=== PATIENT | female | born 1985 ===

== ENCOUNTER 2018-03-07 17:39 | Emergency (ER) | payer MEDICAID ==
[2018-03-07 18:09] VITALS: BMI 22.3
[2018-03-07] MEDS ORDERED: Sodium Chloride 0.9% 1,000 ML IV STA (18:50)
[2018-03-07 19:09] LABS: BASO # 0.05 K/mm3 (0.0-2.0); BASO % 0.9 % (0.0-3.0); EOS # 0.2 (0.0-0.7); EOS % 4.3 % (1.5-5.0); GRAN # 3.61 (1.4-6.5); GRAN % 64.6 % (50.0-68.0); HEMOGLOBIN 13.5 g/dL (12.0-16.0); LYMPH # 1.2 (1.2-3.4); MEAN CELL VOLUME 93.5 fl (80.0-105.0); MEAN CORPUSCULAR HEMOGLOBIN 31.5 pg (25.0-35.0); MEAN CORPUSCULAR HGB CONC 33.8 g/dl (31.0-37.0); MEAN PLATELET VOLUME 10.5 fl (7.0-11.0); MONO # 0.5 (0.1-0.6); MONO % 8.2 % (1.0-6.0); RBC 4.28 10^6/uL (3.5-6.1); RED CELL DISTRIBUTION WIDTH 11.8 % (11.5-14.5); WHITE BLOOD COUNT 5.6 10^3/uL (4.5-11.0)
[2018-03-07 19:11] LABS: URINE APPEARANCE CLEAR (CLEAR); URINE BILIRUBIN NEGATIVE (NEGATIVE); URINE BLOOD NEGATIVE (NEGATIVE); URINE COLOR YELLOW (YELLOW); URINE GLUCOSE (UA) NEGATIVE (NEGATIVE); URINE LEUKOCYTE ESTERASE NEGATIVE Leu/uL (NEGATIVE); URINE PROTEIN NEGATIVE mg/dL (<30 mg/dL); URINE UROBILINOGEN 0.2 E.U./dL (<1 E.U./dL)
[2018-03-07 19:31] LABS: ALB/GLOB RATIO 1.4 (1.1-1.8); ALBUMIN 4.6 g/dL (3.0-4.8); ALT/SGPT 25 U/L (7-56); AST/SGOT 23 U/L (14-36); BLOOD UREA NITROGEN 17 mg/dL (7-21); CALCIUM 9.2 mg/dL (8.4-10.5); GFR NON-AFRICAN AMERICAN > 60
[2018-03-07 20:47] VITALS: RESP 17; O2SAT 98
--- NOTE | 2018-03-07 21:27 | ED PDOC ---
Arrival/HPI - General Chief Complaint: Weakness/Neurological Deficit Time Seen by Provider: 03/07/18 18:15 Historian: Patient - History of Present Illness Narrative History of Present Illness (Text): 32 year old female with PMH of asthma presents to the emergency department complaining of intermittent left arm paresthesias x 8 months. Had one short episode of right-sided lower lip and neck muscle twitching this afternoon which prompted visit to emergency department. Also mentions intermittent chest tightness and SOB last month, typical of her asthma, that resolved with albuterol inhaler use. No current physical complaints, would just like to be "checked out". Requesting to establish followup with clinic. Denies fever, ch ills, headache, dizziness, vision changes, palpitations, diaphoresis, abdominal pain, N/V, weakness, numbness, facial droop, facial numbness/paresthesias, difficulty speaking, changes in gait/balance, urinary symptoms, or any other associated symptoms. Past Medical History - Provider Review Nursing Documentation Reviewed: Yes - Infectious Disease Hx of Infectious Diseases: None - Cardiac Hx Cardiac Disorders: No - Pulmonary Hx Respiratory Disorders: Yes Hx Asthma: Yes - Neurological Hx Neurological Disorder: No - HEENT Hx HEENT Disorder: No - Renal Hx Renal Disorder: No - Endocrine/Metabolic Hx Endocrine Disorders: No - Hematological/Oncological Hx Blood Disorders: No - Integumentary Hx Dermatological Disorder: No - Musculoskeletal/Rheumatological Hx Musculoskeletal Disorders: No - Gastrointestinal Hx Gastrointestinal Disorders: No - Genitourinary/Gynecological Hx Genitourinary Disorders: No - Psychiatric Hx Psychophysiologic Disorder: No Hx Substance Use: No Family/Social History - Physician Review Nursing Documentation Reviewed: Yes Family/Social History: No Known Family HX Smoking Status: Never Smoked Hx Alcohol Use: Yes Frequency of alcohol use: Socially Hx Substance Use: No Allergies/Home Meds Allergies/Adverse Reactions: Allergies No Known Allergies Allergy (Verified 03/08/18 09:15) Home Medications: Home Meds Medication Instructions Recorded Confirmed Albuterol HFA [Ventolin HFA 90 0.09 mg IH Q12 12/25/16 03/31/17 mcg/actuation (8 g)] Review of Systems - Physician Review All systems were reviewed & negative as marked: Yes - Review of Systems Constitutional: Normal. absent: Fatigue, Fevers Eyes: Normal. absent: Vision Changes, Photophobia ENT: Normal. absent: Sore Throat, Sinus Congestion Respiratory: Normal. absent: SOB, Cough Cardiovascular: Normal. absent: Chest Pain, Palpitations, Calf Pain, Syncope Gastrointestinal: Normal. absent: Abdominal Pain, Diarrhea, Nausea, Vomiting Genitourinary Female: Normal. absent: Dysuria, Frequency Musculoskeletal: Normal. absent: Arthralgias, Back Pain, Neck Pain Skin: Normal. absent: Rash Neurological: Other (paresthesias, twitching). absent: Headache, Dizziness, Focal Weakness, Gait Changes, Speech Changes, Facial Droop, Disequilibrium Endocrine: Normal Hemo/Lymphatic: Normal Psychiatric: Normal Physical Exam Vital Signs Reviewed: Yes Vital Signs Temp Pulse Resp BP Pulse Ox 03/07/18 20:46 70 17 115/60 98 03/07/18 18:09 98.6 F 67 18 118/80 97 Temperature: Afebrile Blood Pressure: Normal Pulse: Regular Respiratory Rate: Normal Appearance: Positive for: Well-Appearing, Non-Toxic, Comfortable Pain Distress: None Mental Status: Positive for: Alert and Oriented X 3 Finger Stick Blood Glucose: 87 - Systems Exam Head: Present: Atraumatic, Normocephalic, Other (No muscle spasm appreciated) Pupils: Present: PERRL Extroacular Muscles: Present: EOMI Conjunctiva: Present: Normal Ears: Present: Normal, NORMAL TM Mouth: Present: Moist Mucous Membranes Pharnyx: Present: Normal. No: ERYTHEMA, EXUDATE Nose (External): Present: Atraumatic Nose (Internal): Present: Normal Inspection Neck: Present: Normal Range of Motion, Paraspinal Tenderness (left side). No: Meningeal Signs, MIDLINE TENDERNESS, Lymphadenopathy Respiratory/Chest: Present: Clear to Auscultation, Good Air Exchange. No: Respiratory Distress, Accessory Muscle Use Cardiovascular: Present: Regular Rate and Rhythm, Normal S1, S2, Peripheal Pulses Present. No: Murmurs Abdomen: Present: Normal Bowel Sounds. No: Tenderness, Distention, Peritoneal Signs Back: Present: Normal Inspection. No: CVA Tenderness, Midline Tenderness, Paraspinal Tenderness Upper Extremity: Present: Normal Inspection, Normal ROM, NORMAL PULSES, Neurovascularly Intact, Capillary Refill < 2s, Other (FROM, full strength, full sensation). No: Cyanosis, Edema Lower Extremity: Present: Normal Inspection, NORMAL PULSES, Normal ROM, Neurovascularly Intact, Capillary Refill < 2 s. No: Edema Neurological: Present: GCS=15, CN II-XII Intact, Speech Normal, Motor Func Grossly Intact, Normal Sensory Function, Normal Cerebellar Funct, Gait Normal, Memory Normal Skin: Present: Warm, Dry, Normal Color. No: Rashes Lymphatic: No: Cervical Adenopathy Psychiatric: Present: Alert, Oriented x 3, Normal Insight, Normal Concentration, Normal Affect, Normal Mood Medical Decision Making ED Course and Treatment: Initial Plan: * CBC * CMP * UA * EKG * CT Head * Cervical Spine XR * IVF Physical exam normal. Pt has no current physical complaints. Wanted to be "checked out" and requesting to establish followup with clinic. CBC: unremarkable CMP: unremarkable UA: unremarkable CT head: normal Cervical Spine XR: findings compatible with muscle spasm Patient continues to have no physical complaints. Resting comfortably in stretcher, laughing and talking with family. Plan of care discussed with patient, and strict instructions given regarding prescriptions, importance of follow up, and signs to return to Emergency Department, to include facial droop, weakness, numbness, difficulty speaking, c hest pain, or any other new/worsening symptoms. Patient verbalizes understanding of discussion. Patient A&Ox3, ambulating with steady gait, stable for discharge home. - Lab Interpretations Lab Results: 03/07/18 18:55 03/07/18 18:55 Lab Results 03/07/18 19:08: Urine Color Yellow, Urine Appearance Clear, Urine pH 6.0, Ur Specific [place] 1.025, Urine Protein Negative, Urine Glucose (UA) Negative, Urine Ketones Trace H, Urine Blood Negative, Urine Nitrate Negative, Urine Bilirubin Negative, Urine Urobilinogen 0.2, Ur Leukocyte Esterase Negative 03/07/18 18:55: Sodium 138, Potassium 4.1, Chloride 104, Carbon Dioxide 27, Anion Gap 11, BUN 17, Creatinine 0.8, Est GFR ( Amer) > 60, Est GFR (Non- Af Amer) > 60, Random Glucose 90, Calcium 9.2, Total Bilirubin 0.6, AST 23, ALT 25, Alkaline Phosphatase 71, Total Protein 7.9, Albumin 4.6, Globulin 3.3, Albumin/Globulin Ratio 1.4 03/07/18 18:55: WBC 5.6, RBC 4.28, Hgb 13.5, Hct 40.0, MCV 93.5, MCH 31.5, MCHC 33.8, RDW 11.8, Plt Count 302, MPV 10.5, Gran % 64.6, Lymph % (Auto) 22.0, [place] % (Auto) 8.2 H, Eos % (Auto) 4.3, Baso % (Auto) 0.9, Gran # 3.61, Lymph # (Auto) 1.2, [place] # (Auto) 0.5, Eos # (Auto) 0.2, Baso # (Auto) 0.05 03/07/18 18:39: Urine HCG, Qual Negative I have reviewed the lab results: Yes - RAD Interpretation Narrative RAD Interpretations (Text): Exam Date: Mar 07, 2018 8:01:[address] of head (w/o contrast) reviewed by radiologist, shows: FINDINGS: BRAIN No acute intraparenchymal hemorrhage. No mass lesion. No CT evidence for acute territorial infarct. No midline shift or extra-axial collections. VENTRICLES: No hydrocephalus. ORBITS: The orbits are unremarkable. SINUSES AND MASTOIDS: The paranasal sinuses and mastoid air cells are clear. BONES: No fracture. SOFT TISSUES: Unremarkable. IMPRESSION: No acute intracranial abnormality. Cervical spine>18yr W/OBLIQUE reviewed by radiologist, shows: Exam Date: Mar 07, 2018 7:58:38 PM CLINICAL HISTORY: Possible radiculopathy Mutiple views of the cervical spine were obtained: There is visualization to T1 vertebral body. There is straightening of the usual cervical lordosis. There is no fracture or spondylolisthesis. The soft tissues are unremarkable. The oblique images demonstrate no evidence for foraminal narrowing. IMPRESSION: STRAIGHTENING OF THE USUAL CERVICAL LORDOSIS, FINDING THAT MAY BE SEEN IN THE SETTING OF MUSCULAR SPASM. Radiology Orders: 03/07/18 18:58 CERVICAL SPINE >18YR W/OBLIQUE [RAD] Stat 03/07/18 19:33 HEAD W/O CONTRAST [CT] Stat Horse Racing Analyst: Radiologist - EKG Interpretation EKG Interpretation (Text): rate 70; NSR; normal intervals; no ST elevations/depressions or other signs of ischemia Interpreted by ED Physician: Yes Type: 12 lead EKG - Medication Orders Current Medication Orders: Discontinued Medications Sodium Chloride (Sodium Chloride 0.9%) 1,000 mls @ 999 mls/hr IV .Q1H1M STA Stop: 03/07/18 19:50 Last Admin: 03/07/18 19:00 Dose: 999 mls/hr eMAR Start Stop Document 03/07/18 19:00 EW (Rec: 03/07/18 19:00 [facility] [id number]) Intravenous Solution Start Date 03/07/18 Start Time 19:00 End Date 03/07/18 End time 20:00 Total Infusion Time 60 Disposition/Present on Arrival - Present on Arrival Any Indicators Present on Arrival: No History of DVT/PE: No History of Uncontrolled Diabetes: No Urinary Catheter: No History of Decub. Ulcer: No History Surgical Site Infection Following: None - Disposition Have Diagnosis and Disposition been Completed?: Yes Diagnosis: Muscle spasm Disposition: HOME/ ROUTINE Disposition Time: 21:45 Patient Plan: Discharge Condition: IMPROVED Discharge Instructions (ExitCare): Muscle Spasms (DC) Additional Instructions: Increase fluids Take flexeril every 8 hours as needed for muscle spasm Followup with clinic within 2 days Followup with neurology within 2 days Return to ER for any new/worsening symptoms Prescriptions: Cyclobenzaprine [Flexeril] 5 mg PO Q8H PRN #12 tab PRN Reason: muscle spasm Referrals: [facility] [Outside] - [place] up with primary [facility] [place] - [facility]] - Follow up with primary Hank Da Silva [Medical Doctor] - Follow up with primary Eduar Chauhan MD [Staff Provider] - Follow up with primary Monisha Barillas MD [Medical Doctor] - Follow up with primary Forms: [employer] ([place]ian), WORK NOTE
[2018-03-07 22:07] VITALS: BP 122/61; PULSE 68; TEMP 98.2
--- NOTE | 2018-03-08 09:35 | RAD ---
Date of service: 03/07/2018 PROCEDURE: Cervical Spine Radiographs. HISTORY: Pain. COMPARISON: None available. FINDINGS: BONES: Alignment maintained. No fracture. Dens Intact. There is straightening of the cervical spine which may be related to muscular spasm or positioning DISC SPACES: Normal. SOFT TISSUES: Normal. No prevertebral soft tissue swelling. OTHER FINDINGS: The report concurs with the preliminary [facility] report IMPRESSION: Negative study
--- NOTE | 2018-03-08 09:39 | CARD ---
APPROVED REPORT Date of service: 03/07/2018 EKG Measurement Heart [id number] <Conclusion> Normal sinus rhythm Normal ECG
--- NOTE | 2018-03-08 09:43 | CT ---
Date of service: 03/07/2018 PROCEDURE: CT HEAD WITHOUT CONTRAST. HISTORY: facial twitching COMPARISON: None available. TECHNIQUE: Axial computed tomography images were obtained through the head/brain without intravenous contrast. Radiation dose: Total exam DLP = 796.85 mGy-cm. This CT exam was performed using one or more of the following dose reduction techniques: Automated exposure control, adjustment of the mA and/or kV according to patient size, and/or use of iterative reconstruction technique. FINDINGS: HEMORRHAGE: No intracranial hemorrhage. BRAIN: No mass effect or edema. No atrophy or chronic microvascular ischemic changes. VENTRICLES: Unremarkable. No hydrocephalus. CALVARIUM: Unremarkable. PARANASAL SINUSES: Unremarkable as visualized. No significant inflammatory changes. MASTOID AIR CELLS: Unremarkable as visualized. No inflammatory changes. OTHER FINDINGS: The report concurs with the preliminary [facility] report IMPRESSION: No acute intracranial findings
== END 2018-03-07 22:07 | disposition home or self-care (01) ==
LOC: MERGE 17:39 → ED 17:39
DX: M62.838 Other muscle spasm (principal)
CPT/HCPCS: 70450; 72050; 80053; 81003; 81025; 82948; 84703; 85025; 93005; 96360; 99285; J7030